=== PATIENT | female | born 1960 | race Caucasian/White ===

== ENCOUNTER 2020-04-19 14:48 | Observation (INO) | payer BC ==
[2020-04-19] VITALS (14 sets, daily range): BP systolic 121–146; BP diastolic 69–85
[~2020-04-19] VITALS: Ht 157.5 cm; Wt 77.8 kg
[2020-04-19] MEDS ORDERED: piperacillin/tazo 4.5gm/100ml 100 ML IV ONE (15:05)
[2020-04-19] MEDS ORDERED: MELO-100 PO (15:48)
[2020-04-19] MEDS ORDERED: ROPI0.5T4 PO (15:48)
[2020-04-19] MEDS ORDERED: ATOR40TA72 PO (15:48)
[2020-04-19] MEDS ORDERED: DILT-36 PO (15:48)
[2020-04-19] MEDS ORDERED: BUPIVAcaine/PF 2.5 mg/ml (0.25%) 30ml vial ONE (16:17)
[2020-04-19] MEDS ORDERED: LIDOcaine 1% 30ml preserv. free vial ONE (16:17)
[2020-04-19 16:23] LABS: BASOPHILS # (AUTO) 0.1 X10'3 (0-0.2); BASOPHILS % (AUTO) 0.7 % (0-1); EOSINOPHILS # (AUTO) 0.1 X10'3 (0-0.9); HEMOGLOBIN 15.2 g/dl (12.0-16.0); LYMPHOCYTES # (AUTO) 1.6 X10'3 (1.1-4.8); LYMPHOCYTES % (AUTO) 17.7 % (21-51); MEAN CORPUSCULAR HEMOGLOBIN 31.8 PG (27.0-31.0); MEAN CORPUSCULAR HGB CONC 34.4 g/dL (33.0-36.5); MEAN CORPUSCULAR VOLUME 92.3 FL (78-98); MEAN PLATELET VOLUME 7.8 FL (7.4-10.4); MONOCYTES # (AUTO) 0.6 X10'3 (0-0.9); MONOCYTES % (AUTO) 6.9 % (2-12); NEUTROPHILS # (AUTO) 6.8 X10'3 (1.8-7.7); NEUTROPHILS % (AUTO) 73.7 % (42-75); PLATELET COUNT 277 X10'3 (140-440); RED BLOOD COUNT 4.77 X10'6 (4.20-5.60); RED CELL DISTRIBUTION WIDTH 13.2 % (11.5-14.5); WHITE BLOOD COUNT 9.3 X10'3 (4.5-11.0)
[2020-04-19 16:30] LABS: ALBUMIN 3.8 G/DL (3.4-5.0); ANION GAP 9 (8-16); BLOOD UREA NITROGEN 7 MG/DL (7-18); BUN/CREATININE RATIO 8.5 (6.6-38.0); CALCIUM 9.4 MG/DL (8.5-10.1); CHLORIDE 103 MMOL/L (99-107); CREATININE 0.82 MG/DL (0.40-0.90); GLUCOSE 102 MG/DL (70-104); POTASSIUM 3.6 MMOL/L (3.5-5.1); SODIUM 138 MMOL/L (135-145); TOTAL CARBON DIOXIDE 26.2 MMOL/L (24-32); eGFR 72 ML/MIN
[2020-04-19] MEDS ORDERED: dexamethasone sod phosphate 10mg/ml inj ONE (16:32)
[2020-04-19] MEDS ORDERED: neostigmine methylsulfate 1 MG/ML 10ml vial ONE (16:32)
[2020-04-19] MEDS ORDERED: glycopyrrolate 0.2mg/ml inj ONE (16:32)
[2020-04-19] MEDS ORDERED: sevoflurane 250ml liquid IH ONE (16:32)
[2020-04-19] MEDS ORDERED: propofol inj 20 ML IV ONE (16:34)
[2020-04-19] MEDS ORDERED: fentaNYL/PF 50MCG/1 ML 2ML syringe ONE (16:34)
[2020-04-19] MEDS ORDERED: LIDOcaine 2% (20mg/ml) 5ml vial ONE (16:34)
[2020-04-19] MEDS ORDERED: midazolam 2 mg/2 ml injection ONE (16:34)
[2020-04-19] MEDS ORDERED: rocuronium 10mg/ml inj IV ONE (16:35)
[2020-04-19] MEDS ORDERED: ringers solution, lacted 1,000 ML IV SCH (16:37)
[2020-04-19] MEDS ORDERED: morphine 2 MG/ML inj. syringe IV PRN (16:40)
[2020-04-19] MEDS ORDERED: meperidine/PF 25mg/ml syringe IV PRN ×3 (16:40)
[2020-04-19] MEDS ORDERED: ondansetron/PF 4mg/2ml inj IV PRN (16:40)
[2020-04-19] MEDS ORDERED: proCHLORperazine 10 MG/2 ml inj IV PRN (16:40)
[2020-04-19] MEDS ORDERED: morphine 4 MG/ML inj SYRINge IV PRN (16:40)
[2020-04-19] MEDS ORDERED: ondansetron/PF 4mg/2ml inj ONE (16:55)
[2020-04-19] MEDS ORDERED: acetaminophen 1,000mg/100ml IV 100 ML IV ONE (17:35)
--- NOTE | 2020-04-19 18:00 | NUR ---
Received from OR via BED , accompanied by Anesthesiologist DR BONNER and report given by Anesthesiolgist. PATIENT WAKING UP, DENIES PAIN, V/S WNL, NEUROVASCULAR CHECKS INTACT, 20G PIV LUE, SCD ON, BANDAIDS TO LAP SIGHTS OF ABDOMEN CDI.
[2020-04-19] MEDS ORDERED: HYDROcodone/acetaminophen 10/325mg tab PO PRN (18:25)
[2020-04-19] MEDS ORDERED: HYDROcodone/acetaminophen 5mg/325mg tablet PO PRN (18:25)
--- NOTE | 2020-04-19 18:50 | NUR ---
PATIENT WAKING UP, DENIES PAIN, V/S WNL, NEUROVASCULAR CHECKS INTACT, 20G PIV LUE, SCD ON, BANDAIDS TO LAP SIGHTS OF ABDOMEN CDI.TAKEN TO 360A WITH ALL BELONGINGS AND HOOKED UP TO MONITORS IN ROOM AND REPORT GIVEN TO RN WHO HAS TAKEN OVER PATIENT CARE.
--- NOTE | 2020-04-19 19:36 | NUR ---
Patient in room [facility]. I have received report from EITAN RN AND JOSH RN IN RECOVERY and had the opportunity to ask questions and assume patient care.
[2020-04-19] MEDS: normal saline 1000ml 1,000 ML IV SCH ×2 (21:44→22:43)
[2020-04-19] MEDS: ROPINIRole 0.25mg tablet PO SCH (22:41)
[2020-04-20] VITALS: BP 127/68
[2020-04-20] MEDS: ceFOXitin 1 GM/D5W 50mL IVPB 50 ML IV SCH ×2 (00:22→08:33)
[2020-04-20 04:00] VITALS: BP 107/67
[2020-04-20] MEDS: normal saline 1000ml 1,000 ML IV SCH ×2 (04:24→05:25)
[2020-04-20 05:53] LABS: BASOPHILS % (AUTO) 0.1 % (0-1); EOSINOPHILS % (AUTO) 0 % (0-6); HEMATOCRIT 40.9 % (35.0-45.0); HEMOGLOBIN 13.8 g/dl (12.0-16.0); LYMPHOCYTES # (AUTO) 0.7 X10'3 (1.1-4.8); LYMPHOCYTES % (AUTO) 7.9 % (21-51); MEAN CORPUSCULAR HEMOGLOBIN 31.3 PG (27.0-31.0); MEAN CORPUSCULAR HGB CONC 33.8 g/dL (33.0-36.5); MEAN CORPUSCULAR VOLUME 92.7 FL (78-98); MONOCYTES # (AUTO) 0.1 X10'3 (0-0.9); MONOCYTES % (AUTO) 1.1 % (2-12); NEUTROPHILS % (AUTO) 90.9 % (42-75); PLATELET COUNT 260 X10'3 (140-440); RED BLOOD COUNT 4.41 X10'6 (4.20-5.60); RED CELL DISTRIBUTION WIDTH 13.1 % (11.5-14.5); WHITE BLOOD COUNT 8.8 X10'3 (4.5-11.0)
[2020-04-20 06:05] LABS: ALBUMIN 3.2 G/DL (3.4-5.0); ANION GAP 9 (8-16); BLOOD UREA NITROGEN 7 MG/DL (7-18); BUN/CREATININE RATIO 8.3 (6.6-38.0); CALCIUM 8.7 MG/DL (8.5-10.1); CHLORIDE 105 MMOL/L (99-107); CREATININE 0.84 MG/DL (0.40-0.90); GLUCOSE 161 MG/DL (70-104); POTASSIUM 4.3 MMOL/L (3.5-5.1); SODIUM 138 MMOL/L (135-145); TOTAL CARBON DIOXIDE 24.4 MMOL/L (24-32); eGFR 70 ML/MIN
--- NOTE | 2020-04-20 06:18 | NUR ---
Problems reprioritized. Patient report given, questions answered & plan of care reviewed with Hakeem BUSTILLO.
[2020-04-20 07:00] VITALS: BP 121/64
[2020-04-20] MEDS ORDERED: Meloxicam 7.5 MG TAB PO SCH (08:00)
[2020-04-20] MEDS ORDERED: atorvastatin 20mg tablet PO SCH (08:00)
[2020-04-20] MEDS ORDERED: diltiazem CD 180mg cap (once-daily) PO SCH (08:00)
[2020-04-20] MEDS: ROPINIRole 0.25mg tablet PO SCH ×2 (08:33→13:48)
[2020-04-20 11:38] VITALS: BP 123/71
[2020-04-20] MEDS ORDERED: HYDR-4383 PO (14:27)
--- NOTE | 2020-04-20 15:15 | NUR ---
PT DISCHARGED IN STABLE CONDITION. LEFT FACILITY IN PRIVATE VEHICLE WITH FAMILY. IV DC CANULA INTACT. FOLLOW UP INSTRUCTIONS GIVEN, ALL QUESTIONS ANSWERED. ALL BELONGINGS IN HAND. Addendum: 04/20/20 at 1548 by Sumi Murphy RN Amended: Links added.
== END 2020-04-20 15:12 | disposition home or self-care (01) ==
LOC: SUR 3N 14:48 → INTOOBSV 14:48
PROVIDERS: ADMIT Surgery; ATTEND Surgery
DX: K35.30 Acute appendicitis with localized peritonitis, without perforation or gangrene (principal); Z90.49 Acquired absence of other specified parts of digestive tract; Z90.710 Acquired absence of both cervix and uterus; Z91.048 Other nonmedicinal substance allergy status; Z91.010 Allergy to peanuts
CPT/HCPCS: 36415; 44970; 76937; 80048; 85025; 87081; 96365; 96366; G0378; J0131; J0694; J1100; J2001; J2250; J2405; J2543; J2704; J2710; J3010; J3490; J7030; J7120; A4215; A4618; A7000

== ENCOUNTER 2023-01-24 09:43 | Emergency (ER) | payer BC ==
[~2023-01-24] VITALS: Ht 157.5 cm; Wt 70.5 kg
[~2023-01-24 09:43] MED LIST: ATOR40TA72 PO; DILT-36 PO; HYDR-4383 PO; MELO-100 PO; ROPI0.5T4 PO
[2023-01-24 10:31] VITALS: BP 130/69
[2023-01-24] MEDS ORDERED: NIRM1TAB PO (11:30)
== END 2023-01-24 12:05 | disposition home or self-care (01) ==
LOC: ER 09:44
DX: U07.1 COVID-19 (principal); Z79.899 Other long term (current) drug therapy
CPT/HCPCS: 99283